=== PATIENT | male | born 1990 | race Caucasian/White ===

== ENCOUNTER 2024-05-02 20:55 | Emergency (ER) | payer BC, SELFPAY ==
[2024-05-02 21:04] VITALS: BP 154/84; PULSE 95; RESP 18; TEMP 37; O2SAT 98; BMI 36.6
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
== END 2024-05-02 23:09 ==
LOC: SERX 23:22
PROVIDERS: Emergency Provider Emergency Medicine
DX: Z02.89 Encounter for other administrative examinations (principal)
CPT/HCPCS: 99281